=== PATIENT | male | born 1995 | race Caucasian/White ===

== ENCOUNTER 2020-10-31 15:52 | Observation (INO) | payer OTHER ==
[2020-10-31 21:47] LABS: Absolute Lymphocytes (CBC) 1.5 K/uL (0.7-4.9); Basophils % 0.3 % (0-1.3); Hematocrit 43.4 % (39.6-49.0); Lymphocytes % 24.3 % (15.3-44.8); MPV 7.7 fL (7.6-11.3); RBC Red Blood Cell Count 5.32 M/uL (4.33-5.43)
[2020-10-31 21:54] LABS: ALT/SGPT 47 U/L (12-78); AST/SGOT 10 U/L (15-37); Albumin 4.6 g/dL (3.4-5.0); Alkaline Phosphatase 75 U/L (45-117); BUN Blood Urea Nitrogen 10 mg/dL (7-18); Bicarbonate 30 mmol/L (21-32); Bilirubin Direct 0.2 mg/dL (0-0.2); Bilirubin Total 0.4 mg/dL (0.2-1.0); Glucose Level 87 mg/dL (74-106); Lipase 129 U/L (73-393); Potassium 4.3 mmol/L (3.5-5.1); Protein, Total 8.3 g/dL (6.4-8.2); Sodium Level 142 mmol/L (136-145)
[2020-10-31] MEDS ORDERED: MORPHINE 4 MG/ML SYR IV PRN (22:41)
[2020-10-31] MEDS ORDERED: ONDANSETRON 4 MG/2 ML VIAL IV PRN (22:41)
[2020-10-31] MEDS ORDERED: ACETAMINOPHEN 500 MG TAB PO PRN (22:41)
[2020-10-31] MEDS ORDERED: METRONIDAZOLE 500mg IVPB 500 MG/100 ML BAG IV ONE (23:06)
[2020-10-31] MEDS ORDERED: CIPROFLOXACIN 400mg IV 400 MG/200 ML BAG IV ONE (23:06)
--- NOTE | 2020-10-31 23:13 | ER ---
Nurse's Notes [facility] Name: Otilio Garcia Age: 24 yrs Sex: Male : 1995 Arrival Date: 10/31/2020 Time: 15:56 Bed 24 Private MD: Diagnosis: Acute appendicitis Presentation: 10/31 15:56 Chief complaint: Patient states: RLQ pain x 1 day. Denies n/v/fever. Coronavirus sv screen: Client denies travel out of the [place] in the last 14 days. At this time, the client does not indicate any symptoms associated with coronavirus-19. Ebola Screen: No symptoms or risks identified at this time. Risk Assessment: Do you want to hurt yourself or someone else? Patient reports no desire to harm self or others. Onset of symptoms was October 30, 2020. 15:56 Method Of Arrival: Ambulatory sv 15:56 Acuity: KRYSTYNA 3 sv 15:57 Initial Sepsis Screen: Does the patient meet any 2 criteria? No. Patient's initial sv sepsis screen is negative. Does the patient have a suspected source of infection? No. Patient's initial sepsis screen is negative. Triage Assessment: 15:59 General: Appears in no apparent distress. comfortable, Behavior is calm, cooperative, sv appropriate for age. Pain: Complains of pain in right lower quadrant Pain currently is 4 out of 10 on a pain scale. Neuro: Level of Consciousness is awake, alert, obeys commands, Oriented to person, place, time, situation, Moves all extremities. Full function. Respiratory: Respiratory effort is even, unlabored. Historical: - Allergies: 15:57 No Known Allergies; sv - PMHx: 15:57 Asthma; sv - PSHx: 15:57 None; sv - Immunization history:: Adult Immunizations up to date. - Social history:: Smoking status: Patient denies any tobacco usage or history of. Screenin:09 Abuse screen: Denies threats or abuse. Nutritional screening: No deficits noted. ll2 Tuberculosis screening: No symptoms or risk factors identified. Fall Risk None identified. Assessment: 21:08 General: Appears in no apparent distress. Behavior is calm, cooperative, appropriate ll2 for age. Pain: Complains of pain in abdomen and right lower quadrant. Neuro: Level of Consciousness is awake, alert, obeys commands, Oriented to person, place, time, situation. Cardiovascular: Patient's skin is warm and dry. Respiratory: Airway is patent Respiratory effort is even, unlabored, Respiratory pattern is regular, symmetrical. GI: Bowel sounds present X 4 quads. Abd is soft Abdomen is tender to palpation in abdomen and right lower quadrant. 22:16 Reassessment: Patient and/or family updated on plan of care and expected duration. Pain ll2 level reassessed. Patient is alert, oriented x 3, equal unlabored respirations, skin warm/dry/pink. 23:24 Reassessment: Patient and/or family updated on plan of care and expected duration. Pain fu level reassessed. Patient is alert, oriented x 3, equal unlabored respirations, skin warm/dry/pink. denies pain at this time. Patient for hospitalization. patient stated that provider notified him. 11/01 01:00 Reassessment: Report called to JUJU Burnett in 2nd floor. Awaiting COVID results. fu Vital Signs: 10/31 15:57 BP 141 / 83; Pulse 87; Resp 16; Temp 98.5(TE); Pulse Ox 100% on R/A; Weight 72.57 kg; sv Height 5 ft. 7 in. (170.18 cm); Pain 4/10; 21:01 BP 144 / 85; Pulse 70; Resp 16; Temp 98.3(O); Pulse Ox 99% on R/A; Pain 5/10; fu 22:05 BP 112 / 68; Pulse 59; Resp 18; Pulse Ox 99% on R/A; ll2 23:15 BP 122 / 87; Pulse 78; Resp 18; Pulse Ox 99% on R/A; Pain 0/10; fu 11/01 00:36 BP 116 / 76; Pulse 61; Resp 18; Temp 98.2(O); Pulse Ox 99% on R/A; Pain 0/10; fu 10/31 15:57 Body Mass Index 25.06 (72.57 kg, 170.18 cm) sv ED Course: 02 15:56 Patient arrived in ED. mr 15:56 Arm band placed on. sv 15:57 Triage completed. 20:05 Francisco Javier Solares PA is PHCP. [facility] 20:05 Ines Hodges MD is Attending Physician. [facility] 20:50 Kathy Marie, JUJU is Primary Nurse. ll2 21:15 Inserted saline lock: 20 gauge in right antecubital area, using aseptic technique. fu Blood collected. 21:20 Basic Metabolic Panel Sent. fu 21:21 CBC with Diff Sent. fu 21:21 Hepatic Function Sent. fu 21:21 Lipase Sent. fu 22:15 CT Abd/Pelvis - IV Contrast Only In Process Unspecified. EDAZ 22:37 Chavo Hitchcock MD is Hospitalizing Provider. [facility] 23:16 COVID-19 : Document "Date of Symptom Onset" if Symptomatic. Sent. fu 23:16 COVID swab sent to lab. fu 23:21 Primary Nurse role handed off by Kathy Marie, JUJU fu 23:21 Rainer Rdz, JUJU is Primary Nurse. fu 23:23 Patient has correct armband on for positive identification. Placed in gown. Bed in low fu position. Call light in reach. Side rails up X 1. 23:46 No provider procedures requiring assistance completed. 11/01 00:51 CORONAVIRUS Sent. ll2 01:00 Patient admitted, IV remains in place. fu 01:03 CORONAVIRUS Sent. fu Administered Medications: 10/31 23:03 Drug: Cipro 400 mg Volume: 200 ml; Route: IVPB; Infused Over: 60 mins; Site: right ll2 antecubital; 23:04 Drug: Flagyl 500 mg Volume: 100 ml; Route: IVPB; Rate: 200 ml/hr; Infused Over: 30 ll2 mins; Site: right antecubital; 23:48 Follow up: Response: No adverse reaction fu Outcome: 22:37 Decision to Hospitalize by Provider. [facility] 11/01 00:59 Admitted to Med/surg accompanied by nurse, via wheelchair, room 230, Report called to isidra Burnett. Condition: stable Instructed on the need for admit, Demonstrated understanding of instructions. 01:13 Patient left the ED. fu Signatures: Dispatcher [employer] EDKelli Pérez RN RN sv Mickail, Joel, PA PA aurora AlirioJoan Ranier Rdz RN RN Kathy Marie, JUJU RN ll2 Corrections: (The following items were deleted from the chart) 02 15:59 15:56 Chief complaint: Patient states: RLQ pain x 1 day. sv sv :51 21:15 Response: Medication administered at discharge. ll2 fu : 21:20 Response: No adverse reaction; IV Status: Completed infusion ll2 fu 21:15 Response: No adverse reaction ll2 fu
--- NOTE | 2020-10-31 23:13 | EDPHYS ---
Physician Documentation [facility] Name: Otilio Garcia Age: 24 yrs Sex: Male : 1995 Arrival Date: 10/31/2020 Time: 15:56 Bed 24 Private MD: ED Physician Ines Hodges HPI: 10/31 21:21 This 24 yrs old Male presents to ER via Ambulatory with complaints of jmm Abdominal Pain. 21:21 The patient presents with abdominal pain in the lower abdomen. Onset: The jmm symptoms/episode began/occurred gradually, 2 day(s) ago. The symptoms do not radiate. Associated signs and symptoms: Pertinent negatives: nausea and vomiting, diarrhea. The symptoms are described as achy, sharp. Modifying factors: The symptoms are alleviated by nothing, the symptoms are aggravated by nothing. The patient has not experienced similar symptoms in the past. Historical: - Allergies: 15:57 No Known Allergies; sv - PMHx: 15:57 Asthma; sv - PSHx: 15:57 None; sv - Immunization history:: Adult Immunizations up to date. - Social history:: Smoking status: Patient denies any tobacco usage or history of. ROS: 21:21 Constitutional: Negative for fever, chills, and weight loss, Cardiovascular: Negative jmm for chest pain, palpitations, and edema, Respiratory: Negative for shortness of breath, cough, wheezing, and pleuritic chest pain. 21:21 Abdomen/GI: Positive for abdominal pain. 21:21 All other systems are negative. Exam: 21:21 Constitutional: This is a well developed, well nourished patient who is awake, alert, jmm and in no acute distress. Head/Face: atraumatic. Eyes: EOMI, no conjunctival erythema appreciated ENT: Moist Mucus Membranes Neck: Trachea midline, Supple Chest/axilla: Normal chest wall appearance and motion. Cardiovascular: Regular rate and rhythm. No edema appreciated Respiratory: Normal respirations, no respiratory distress appreciated Abdomen/GI: Non distended, soft 21:21 Skin: General appearance color normal MS/ Extremity: Moves all extremities, no obvious deformities appreciated, no edema noted to the lower extremities Neuro: Awake and alert, normal gait Psych: Behavior is normal, Mood is normal, Patient is cooperative and pleasant 21:21 Abdomen/GI: Inspection: abdomen appears normal, Bowel sounds: normal, Palpation: soft, moderate abdominal tenderness, in the right lower quadrant. Vital Signs: 15:57 BP 141 / 83; Pulse 87; Resp 16; Temp 98.5(TE); Pulse Ox 100% on R/A; Weight 72.57 kg; sv Height 5 ft. 7 in. (170.18 cm); Pain 4/10; 21:01 BP 144 / 85; Pulse 70; Resp 16; Temp 98.3(O); Pulse Ox 99% on R/A; Pain 5/10; fu 22:05 BP 112 / 68; Pulse 59; Resp 18; Pulse Ox 99% on R/A; ll2 23:15 BP 122 / 87; Pulse 78; Resp 18; Pulse Ox 99% on R/A; Pain 0/10; fu 11/01 00:36 BP 116 / 76; Pulse 61; Resp 18; Temp 98.2(O); Pulse Ox 99% on R/A; Pain 0/10; fu 10/31 15:57 Body Mass Index 25.06 (72.57 kg, 170.18 cm) sv MDM: 10/31 21:15 Patient medically screened. [facility] 22:36 Data reviewed: vital signs, nurses notes. Counseling: I had a detailed discussion with evans the patient and/or guardian regarding: the historical points, exam findings, and any diagnostic results supporting the discharge/admit diagnosis, lab results, radiology results, the need for further work-up and treatment in the hospital. ED course: I discussed the patient with Dr. Hitchcock whom advises abx and to admit to his service. Will see the patient in the morning. . 10/31 21:14 Order name: Basic Metabolic Panel; Complete Time: 22:02 ll2 10/31 21:14 Order name: CBC with Diff; Complete Time: 22:02 ll2 10/31 21:14 Order name: Hepatic Function; Complete Time: 22:02 ll2 10/31 21:14 Order name: Lipase; Complete Time: 22:02 ll2 10/31 22:42 Order name: Basic Metabolic Panel EDMS 10/31 22:43 Order name: Basic Metabolic Panel EDMS 10/31 22:43 Order name: CBC with Automated Diff EDMS 10/31 22:43 Order name: CBC with Automated Diff EDMS 10/31 22:43 Order name: Lipase EDMS 10/31 22:43 Order name: Lipase EDMS 10/31 22:43 Order name: Liver (Hepatic) Function EDMS 10/31 22:43 Order name: Liver (Hepatic) Function EDMS 10/31 22:48 Order name: COVID-19 : Document "Date of Symptom Onset" if Symptomatic. 2 11/01 00:06 Order name: CORONAVIRUS EDFL 10/31 21:14 Order name: IV Saline Lock; Complete Time: 21:19 ll2 10/31 21:14 Order name: Labs collected and sent; Complete Time: 21:19 2 10/31 21:44 Order name: CT Abd/Pelvis - IV Contrast Only [facility] 10/31 22:43 Order name: NPO [facility] 11/01 00:07 Order name: CORONAVIRUS [facility] 11/01 01:04 Order name: SARS-COV-2 RT PCR EDMS Administered Medications: 23:03 Drug: Cipro 400 mg Volume: 200 ml; Route: IVPB; Infused Over: 60 mins; Site: right ll2 antecubital; 23:04 Drug: Flagyl 500 mg Volume: 100 ml; Route: IVPB; Rate: 200 ml/hr; Infused Over: 30 ll2 mins; Site: right antecubital; 23:48 Follow up: Response: No adverse reaction fu Disposition: 10/31/20 22:37 Hospitalization ordered by Chavo Hitchcock for Observation. Preliminary diagnosis is Acute appendicitis. - Bed requested for Telemetry/MedSurg (observation). - Status is Observation. fu - Condition is Stable. - Problem is new. - Symptoms are unchanged. Addendum: 11/02/2020 06:56 Co-signature as Attending Physician, Ines Hodges MD. m a2 Signatures: Dispatcher [employer] [facility] Kelli Carey RN Francisco Javier Gilmore PA PA jmm Garcia, Cindy, RN RN Rainer Rdz RN RN fu Alzahri, Mohammad, MD MD [facility] Kathy Marie RN RN 2 Corrections: (The following items were deleted from the chart) 10/31 23:41 22:37 Hospitalization Ordered by Chavo Hitchcock MD for Observation. Preliminary cg diagnosis is Acute appendicitis. Bed requested for Telemetry/MedSurg (observation). Status is Observation. Condition is Stable. Problem is new. Symptoms are unchanged. evans 11/01 01:13 10/31 23:41 10/31/2020 22:37 Hospitalization Ordered by Chavo Hitchcock MD for fu Observation. Preliminary diagnosis is Acute appendicitis. Bed requested for Telemetry/MedSurg (observation). Status is Observation. Condition is Stable. Problem is new. Symptoms are unchanged.
[2020-11-01] MEDS ORDERED: METRONIDAZOLE 500mg IVPB 500 MG/100 ML BAG IV SCH (01:00)
[2020-11-01] MEDS: D5 0.45 NS 1,000 ML IV SCH ×3 (01:42→15:00)
[2020-11-01 03:46] VITALS: BMI 24.0
[2020-11-01 05:44] LABS: Absolute Lymphocytes (CBC) 2.2 K/uL (0.7-4.9); Basophils % 0.4 % (0-1.3); Hematocrit 39.3 % (39.6-49.0); Lymphocytes % 41.4 % (15.3-44.8); MPV 7.4 fL (7.6-11.3); RBC Red Blood Cell Count 4.93 M/uL (4.33-5.43)
[2020-11-01 05:56] LABS: ALT/SGPT 36 U/L (12-78); AST/SGOT 10 U/L (15-37); Albumin 3.9 g/dL (3.4-5.0); Alkaline Phosphatase 59 U/L (45-117); BUN Blood Urea Nitrogen 8 mg/dL (7-18); Bicarbonate 28 mmol/L (21-32); Bilirubin Direct 0.1 mg/dL (0-0.2); Bilirubin Total 0.5 mg/dL (0.2-1.0); Glucose Level 93 mg/dL (74-106); Lipase 108 U/L (73-393); Potassium 3.7 mmol/L (3.5-5.1); Protein, Total 7.1 g/dL (6.4-8.2); Sodium Level 141 mmol/L (136-145)
[2020-11-01] MEDS: METRONIDAZOLE 500mg IVPB 500 MG/100 ML BAG IV SCH ×2 (08:14→16:27)
[2020-11-01] MEDS ORDERED: CIPROFLOXACIN 400mg IV 400 MG/200 ML BAG IV SCH (12:00)
--- NOTE | 2020-11-01 12:16 | RAD REPORT ---
EXAM DESCRIPTION: CT - Abdomen Pelvis W Contrast - 11/01/2020 6:23 am RadLex: CT ABDOMEN PELVIS WITH IV CONTRAST CLINICAL HISTORY: Right lower abdominal pain. COMPARISON: None. TECHNIQUE: CT of the abdomen and pelvis was performed following intravenous administration of iodina zac contrast. Arterial phase through the abdomen, and portal venous phase through the abdomen and pel vis were performed. Oral contrast was not administered. Axial, coronal, and sagittal 3 mm soft tissue window reconstructions were created and sent to PACS. This exam was performed according to our departmental dose-optimization program, which includes autom ated exposure control, adjustment of the mA and/or kV according to patient size and/or use of iterati ve reconstruction technique. FINDINGS: Thoracic: No significant abnormality. Hepatobiliary: No concerning hepatic lesion identified. The hepatic and portal veins are patent. The gallbladder is unremarkable. No biliary ductal dilatation. Pancreas: Unremarkable. Spleen: Unremarkable. Gastrointestinal: Dilated appendix with wall thickening and mild surrounding fat stranding. The appen cody measures up to 1.2 cm in diameter. There is no adjacent free air or walled off fluid collection. No evidence of bowel obstruction. Adrenals: No abnormality identified in either adrenal gland. Renal: No concerning parenchymal abnormality in either kidney. No hydronephrosis or urolithiasis. Bladder/Reproductive: Unremarkable appearance of the urinary bladder by CT technique. Vascular/Lymphatics: No lymphadenopathy identified by CT size criteria. Abdominal aorta is normal in caliber . No aortic dissection. Incidentally noted circumaortic left renal vein, normal variant. Musculoskeletal: No concerning osseous lesion identified. Small Schmorl's nodes at L5-S1. Fluid / peritoneum: No significant free fluid. No free intraperitoneal air identified. IMPRESSION Acute appendicitis, uncomplicated. Electronically signed by: Gladys Gilman MD 10/31/2020 10:26 PM [employer] Due to temporary technical issues with the PACS/Fluency reporting system, reports are being signed b y the in house radiologists without review as a courtesy to insure prompt reporting. The interpreting radiologist is fully responsible for the content of the report.
[2020-11-01] MEDS ORDERED: Ringers Lactate 1,000 ML IV ONE (12:35)
--- NOTE | 2020-11-01 13:32 | P.HP ---
Date of Service: 11/01/20 PC: This 24-year-old male presents emergency room with severe right lower quadrant abdominal pain for diagnosis and treatment. HPC: Patient had been feeling unwell the evening prior to this admission. He noticed he had some vague nonspecific abdominal pain. But is going to have diarrhea. The following morning the pain persisted. Now has mild anorexia, pain located in the right lower quadrant and abdominal tenderness. PMH: Negative PSHx: Negative SOC: No known allergies SYS REVIEW: No cough, wheeze, shortness of breath. No chest pain or palpitations. Denies any urinary complaints O/E awake alert comfortable at the moment vital signs are stable HEENT: Within normal limits Chest: Chest movement equal bilaterally ABD: Point tenderness in the right lower quadrant at McBurney's point with mild rebound LOCO: Intact DATA: CT scan shows early appendicitis IMPRESSION: Acute abdomen with an early appendicitis PLAN: I will take him the operating room for laparoscopic possible open appendectomy. The risks of this procedure have been discussed. The possibility of bleeding, infection, injury to bowel and surrounding structures were outlined. The possible need for an open and/or further surgeries and procedures was discussed. He understands and wants to proceed.
[2020-11-01] MEDS ORDERED: MIDAZOLAM HCL 2 MG/2 ML INJ ONE (13:39)
[2020-11-01] MEDS ORDERED: dexAMETHasone 10 MG/ML VIAL ONE (13:39)
[2020-11-01] MEDS ORDERED: FENTANYL CITR 100 MCG/2 ML ONE (13:39)
[2020-11-01] MEDS ORDERED: propofoL 200 MG/20 ML VIAL IV ONE (13:39)
[2020-11-01] MEDS ORDERED: LIDOCAINE 1% MPF 5 ML VIAL ONE (13:39)
[2020-11-01] MEDS ORDERED: ROCURONIUM 50 MG/5 ML VIAL IV ONE (13:41)
[2020-11-01] MEDS ORDERED: EPHEDRINE SULF 50 MG/ML VIAL ONE (14:40)
[2020-11-01] MEDS ORDERED: ONDANSETRON 4 MG/2 ML VIAL IV PRN (14:50)
[2020-11-01] MEDS ORDERED: HYDROCODONE/APAP 7.5/325 MG TAB PO PRN (14:50)
--- NOTE | 2020-11-01 14:50 | P.OP ---
Preoperative diagnosis: Acute abdomen Postoperative diagnosis: Acute appendicitis Primary procedure: Laparoscopic appy back Anesthesia: General Estimated blood loss: Less than 10 cc Specimen: 1 appended Findings: Acute appendicitis Operative Technique: The patient was brought to the operating room, and placed supine on the table. After the induction of adequate general endotracheal anesthesia, the area of the abdomen was prepped with a DuraPrep solution, and he was draped in the usual aseptic manner. A subumbilical incision was made. This was brought down through the skin and subcutaneous tissue. The Visiport was used to enter the peritoneal cavity and created pneumoperitoneum to approximately 12 mm of mercury. Under direct vision a 5 mm trocar was placed in the lower midline and another 5 mm in the right upper quadrant. The patient was then positioned in Trendelenburg and rolled to the left side. We were able to visualize right lower quadrant. We could see some inflammation at the base the cecum. This led to an appendix that traced down and low laterally in the retroperitoneum. The appendix was identified and found being acutely inflamed. The peritoneum was opened to liberate the appendix. The appendix was then gently dissected from the surrounding structures. The junction of the appendix with the with the cecum was identified. An opening was made in the mesentery of the appendix. The 10 mm trocar was now converted to a 12 with the camera moved to the right upper port with a 5 mm view. The linear Stapler was introduced into the peritoneal cavity. It was placed across the base of the appendix and fired. A vascular reload was then placed into the Stapler. The mesentery of the appendix was then taken down. The appendix having been was placed into an Endo-Catch, brought out through the umbilical port site. Attention was turned back towards the right lower quadrant. The area was gently irrigated with the saline solution. The effluent was aspirated. 0.25% Marcaine was sprayed into the right lower quadrant. Attention was turned towards the umbilical trocar. Using the endo- close absorbable sutures were placed to close the defect with 2 sutures. The patient was now returned to the neutral position on the OR table. The pneumoperitoneum was collapsed, the umbilical sutures tied, and abbie applied to the skin. At the end of the procedure the patient was in stable condition and sent to the recovery room. Needle sponge and instrument count were correct. 1 specimen was sent for histopathology. Sterile dressings had been applied. Complications: None Transferred to: Recovery Room Condition: Good
[2020-11-01] MEDS ORDERED: KETOROLAC 30 MG/ML INJ ONE (14:57)
[2020-11-01] MEDS ORDERED: Ringers Lactate 1,000 ML IV SCH (15:00)
[2020-11-01] MEDS: MORPHINE 4 MG/ML SYR IV PRN ×3 (15:14→15:29)
[2020-11-01 15:31] VITALS: O2SAT 95
[2020-11-01] MEDS ORDERED: MORPHINE 4 MG/ML SYR ONE (15:44)
[2020-11-01 17:29] VITALS: BP 121/69; TEMP 97.5
== END 2020-11-01 22:01 | disposition home or self-care (01) ==
LOC: ER 15:52 → ERHOLD 22:49 → 2ND 11-01 00:05
PROVIDERS: ADMIT Surgery; ATTEND Surgery
PROC: 0DTJ4ZZ Resection of Appendix, Percutaneous Endoscopic Approach (ICD-10-PCS; principal; 2020-11-01 12:45)
DX: K35.80 Unspecified acute appendicitis (principal); R63.0 Anorexia; Z68.24 Body mass index [BMI] 24.0-24.9, adult; J45.909 Unspecified asthma, uncomplicated
CPT/HCPCS: 85025 ×2; 80048 ×2; 36415; 80076 ×2; 83690 ×2; 74177; 94010; 44970; U0003; Q9967; J2704; J2250; J3010; J1100; J7799 ×2; J7120 ×2; J2405; J0744 ×2; 88304; 96374; 96375; 99285; G0378